=== PATIENT | male | born 1955 | race Caucasian/White ===

== ENCOUNTER 2017-04-20 11:20 | Emergency (ER) | payer OTHER ==
[~2017-04-20] VITALS: Wt 88.5 kg
[~2017-04-20 11:20] MED LIST: CIALIS10 MG PO; IBU-6600 MG PO
[2017-04-20] MEDS ORDERED: ADVIL 200MG TA200 MG PO (11:33)
[2017-04-20 13:32] LABS: HEMATOCRIT 42.9 % (42.0-52.0); HEMOGLOBIN 14.2 g/dL (13.5-18.0); MEAN CELL VOLUME 86 fl (78-100); MEAN CORPUSCULAR HEMOGLOBIN 28 pg (27-31); MEAN CORPUSCULAR HGB CONC 33 g/dL (33-37); MEAN PLATELET VOLUME 9.6 fl (7.4-10.4); PLATELET COUNT 240 K/mm3 (130-400); RED BLOOD COUNT 5.01 M/mm3 (4.20-5.60); RED CELL DISTRIBUTION WIDTH 13.1 % (11.5-14.5); WHITE BLOOD COUNT 12.5 K/mm3 (4.8-10.8)
[2017-04-20 13:39] LABS: ALBUMIN 3.7 g/dL (3.5-5.0); BUN/CREATININE RATIO 15.6 (6.0-26.0); POTASSIUM 4.4 mmol/L (3.6-5.0); TOTAL BILIRUBIN 0.9 mg/dL (0.2-1.3); TOTAL PROTEIN 6.6 g/dL (6.3-8.2)
[2017-04-20 14:14] LABS: LYMPHOCYTE 5 % (20-51); MONOCYTE 6 % (3-10); NEUTROPHILS 89 % (42-75)
[2017-04-20 14:15] LABS: PH-URINE 7.5 (5.0 - 8.0); URINE APPEARANCE CLEAR; URINE BILIRUBIN NEGATIVE (NEGATIVE); URINE BLOOD NEGATIVE (NEGATIVE); URINE COLOR DK YELLOW; URINE GLUCOSE NEGATIVE (NEGATIVE); URINE KETONE NEGATIVE (NEGATIVE); URINE LEUKOCYTE ESTERASE TRACE (NEGATIVE); URINE NITRATE NEGATIVE (NEGATIVE); URINE PROTEIN(semi-quant) TRACE mg/dL (NEGATIVE); URINE UROBILINOGEN NORMAL (NORMAL)
[2017-04-20 14:16] LABS: URINE MUCUS PRESENT (NOT PRESENT)
[2017-04-20 16:29] VITALS: BP 120/58
== END 2017-04-20 16:35 | disposition short-term general hospital (02) ==
LOC: ED 11:20
PROVIDERS: Family Medicine
DX: K37 Unspecified appendicitis (principal)
CPT/HCPCS: J1885; J3010; Q9967